=== PATIENT | female | born 1970 | race Caucasian/White ===

== ENCOUNTER 2019-02-03 00:05 | Observation (INO) | payer SELFPAY ==
[2019-02-03] MEDS ORDERED: Ketorolac Tromethamine 30 MG/ML VIAL ONE ×2 (00:42→11:13)
[2019-02-03] MEDS ORDERED: Ondansetron PF 4 MG/2 ML Vial ONE ×2 (00:42→09:41)
[2019-02-03 01:17] LABS: #Lymphocytes 1.6 thou/uL (1.20-3.40); #Neutrophils 13.6 thou/uL (1.40-6.50); %Basophils 0.3 % (0.0-1.0); %Eosinophils 0.1 % (0.0-10.0); %Neutrophils 83.7 % (42.0-75.0); Hemoglobin 14.2 g/dL (12.0-16.0); Mean Corpuscular HGB CONC 34.1 g/dL (32.0-36.0); Mean Corpuscular Hemoglobin 30.5 pg (27.0-31.0); Mean Corpuscular Volume 89.3 fL (78.0-98.0); Mean Platelet Volume 8.5 fL (7.4-10.4); Platelet Count 230 thou/uL (130-400); RBC Distribution Width 11.9 % (11.5-14.5); Red Blood Cell (RBC) Count 4.67 mill/uL (4.20-5.40); White Blood Cell (WBC) Count 16.2 thou/uL (4.8-10.8)
[2019-02-03 01:22] LABS: BHCG - Serum Negative (NEGATIVE); Pregs Control Background? CLEAR/WHITE (CLR/WHITE); Pregs Control Bar Appear? YES (CONTROL BAR)
[2019-02-03 01:38] LABS: ALT (SGPT) 236 U/L (8-55); AST (SGOT) 179 U/L (5-34); Albumin 4.1 g/dL (3.5-5.0); Alkaline Phosphatase 126 U/L (40-110); Anion Gap 13 mmol/L (10-20); BUN (Urea Nitrogen) 9 mg/dL (7.0-18.7); Bilirubin, Total 1.5 mg/dL (0.2-1.2); Calc. Creatinine Clearance 0 mL/min (70-130); Calcium 9.2 mg/dL (7.8-10.44); Carbon Dioxide 26 mmol/L (22-29); Chloride 99 mmol/L (98-107); Estimated GFR-MDRD 82; Globulin 3.6 g/dL (2.4-3.5); Glucose 85 mg/dL (70-105); Lipase 418 U/L (8-78); Potassium 3.3 mmol/L (3.5-5.1); Protein, Total 7.7 g/dL (6.0-8.3); Sodium 135 mmol/L (136-145)
[2019-02-03] MEDS ORDERED: Piperacillin/Tazobactam 4.5 GM VIAL ONE (02:15)
[2019-02-03] MEDS ORDERED: Morphine 4 MG/ML VIAL SLOW IVP PRN (03:48)
[2019-02-03] MEDS ORDERED: Ondansetron PF 4 MG/2 ML Vial IVP PRN (03:48)
[2019-02-03] MEDS ORDERED: Ondansetron ODT 4 MG TAB PO PRN (03:48)
[2019-02-03] MEDS ORDERED: hydrALAZINE 20 MG/ML VIAL SLOW IVP PRN (03:48)
[2019-02-03] MEDS ORDERED: Morphine 2 MG/ML SYRINGE SLOW IVP PRN (03:48)
[2019-02-03] MEDS ORDERED: Acetaminophen 1,000 MG in Premix Bag 1 BAG IVPB PRN ×2 (03:51→03:52)
[2019-02-03] MEDS ORDERED: Ketorolac Tromethamine 30 MG/ML VIAL IVP PRN ×2 (03:51→03:52)
[2019-02-03] MEDS ORDERED: Ketorolac Tromethamine 30 MG/ML VIAL IVP SCH (04:00)
[2019-02-03] MEDS ORDERED: Acetaminophen 1,000 MG in Premix Bag 1 BAG IVPB SCH ×2 (04:00)
--- NOTE | 2019-02-03 04:01 | HP ---
HISTORY OF PRESENT ILLNESS: A 48-year-old female with biliary symptoms for more than 12 years, presents with a severe episode. Ultrasound reveals multiple gallstones, normal bile duct caliber. White count 16, hemoglobin 14. Sodium 135, potassium 3.3, bilirubin 1.5, AST 179, ALT 236, and alkaline phosphatase 126. ALLERGIES: NONE. SOCIAL HISTORY: Tobacco, none. Alcohol, socially. MEDICATIONS: None. PAST SURGICAL HISTORY: Tonsillectomy. PAST MEDICAL HISTORY: Noncontributory. REVIEW OF SYSTEMS: Noncontributory. PHYSICAL EXAMINATION: VITAL SIGNS: Weight 113 kg, blood pressure 131/79, heart rate 114, respiratory rate 18, and temperature 99 degrees. HEENT: Sclerae are nonicteric. LUNGS: Clear to auscultation. NEUROLOGIC: Intact. No focal deficit. CARDIAC: Regular rate and rhythm without murmur or gallop. ABDOMEN: Obese, soft. Tenderness in right upper quadrant. Positive Bentley's. EXTREMITIES: Unremarkable. No lymphadenopathy in neck, groin, or axilla. No evident hernias. ASSESSMENT: Cholecystitis, cholelithiasis. PLAN: Laparoscopic video cholecystectomy, cholangiograms. Risks of infection, bleeding, visceral and biliary injury, open procedure, transfusions, etc., were discussed, questions answered. Job ID: [id number]
[2019-02-03] MEDS: NS 0.9% w/ 20 MEQ KCL 1,000 ML IV SCH ×2 (05:08→11:42)
[2019-02-03 05:23] VITALS: BMI 39.1
[2019-02-03] MEDS ORDERED: Lidocaine 1% PF 5 ML VIAL ONE (09:41)
[2019-02-03] MEDS ORDERED: PROPOFOL 200 MG/20 ML VIAL ONE (09:41)
[2019-02-03] MEDS ORDERED: Dexamethasone 20 MG/5 ML VIAL ONE (09:41)
[2019-02-03] MEDS ORDERED: Glycopyrrolate 0.2 MG/ML 5 ML SYRINGE ONE (09:41)
[2019-02-03] MEDS ORDERED: Rocuronium Bromide 10 MG/ML (10ML VIAL) ONE (09:41)
--- NOTE | 2019-02-03 09:43 | ULT ---
PRELIMINARY REPORT/[facility]/EMERGENCY AFTER HOURS PROCEDURE: PROCEDURE INFORMATION: Exam: US Abdomen Limited, Right Upper Quadrant Exam date and time: 02/03/2019 12:19 AM Clinical history: 48 years old, female; Other: Upper abd pain TECHNIQUE: Imaging protocol: Real-time ultrasound of the abdomen with image documentation. Examination was focus ed on the right upper quadrant. COMPARISON: No relevant prior studies available. FINDINGS: Liver: Normal. No masses. Gallbladder: Gallbladder is full of gallstones. No gallbladder wall thickening. Equivocal trace peric holecystic fluid. Sonographic Bentley's sign reported as positive. Common bile duct: Normal. No stones. No dilation. Pancreas: Visualized pancreas is unremarkable. Right kidney: Normal. No mass. No hydronephrosis. IMPRESSION: Gallbladder full of gallstones. Equivocal trace pericholecystic fluid and presence of positive sonogr aphic Bentley sign there is the possibility of acute cholecystitis; however, there is no gallbladder w all thickening. Thank you for allowing us to participate in the care of your patient. Dictated and Authenticated by: Geremias Green MD 02/03/2019 12:59 AM Central Time ([place] & [place]) FINAL REPORT RIGHT UPPER QUADRANT ULTRASOUND: HISTORY: Upper abdominal pain. COMPARISON: None. FINDINGS: This report is in agreement with the preliminary report by [facility]. Sonographic evidence of cholelithias is with positive Bentley's sign and a trace amount of pericholecystic fluid. The possibility of erika cystitis is raised. Correlate clinically. Consider HIDA scan. POS: [facility]
[2019-02-03] MEDS ORDERED: Fentanyl 100 MCG/2 ML VIAL ONE (10:53)
[2019-02-03] MEDS ORDERED: Bupivacaine HCl 0.5%/Epinephrine 1:200,000/PF 30 ml Vial ONE (11:13)
[2019-02-03] MEDS ORDERED: Iothalamate Meglumine 60% 50 ML VIAL FS ONE (11:42)
--- NOTE | 2019-02-03 12:26 | RAD ---
INTRAPROCEDURE FLUOROSCOPY INTRAOPERATIVE CHOLANGIOGRAM: HISTORY: Intraoperative cholangiogram; cholecystitis. FINDINGS: Single fluoroscopic view demonstrates cannulation of the cystic duct. Appropriate contrast opacificat ion of the common bile duct and intrahepatic biliary system. Contrast opacifies the duodenum. IMPRESSION: Intraoperative fluoroscopy as above. Transcribed Date/Time: 02/03/2019 12:36 PM
--- NOTE | 2019-02-03 13:00 | OP ---
DATE OF PROCEDURE: 02/03/2019 PREOPERATIVE DIAGNOSES: [id number] cholecystitis, cholelithiasis, elevated liver function test, and normal bile duct caliber. POSTOPERATIVE DIAGNOSES: [id number] cholecystitis, cholelithiasis, elevated liver function test, and normal bile duct caliber. PROCEDURES PERFORMED: Laparoscopic video cholecystectomy, negative intraoperative cholangiogram, fluoroscopy used. ANESTHESIA: General, local anesthesia of 0.5% Marcaine with epinephrine 30 mL. DESCRIPTION OF PROCEDURE: The patient was taken to the operating room, where under general anesthesia, abdomen was prepared with ChloraPrep and draped in routine fashion. Local anesthetic of 0.5% Marcaine with epinephrine was infiltrated in the skin and subcutaneous tissue at each port site. Infraumbilical incision was made. Pneumoperitoneum to 15 mmHg was obtained with a Veress needle. I replaced it with a 5 port, and laparoscope was inserted. Right subxiphoid incision was made, and an 11 port was placed. Right subcostal incision was made at midclavicular entrance line, and a 5 port was placed. Liver appeared to be normal. Gallbladder was distended, mildly inflamed. Fundus was grasped at the cephalad. Infundibulum was grasped and retracted laterally. Cystic artery and duct were dissected free. Critical view was obtained. Cystic artery was doubly clipped proximally. Cystic duct was singly clipped on the gallbladder side. Opening was made in the cystic duct, and cholangiocatheter was inserted. Cholangiogram was obtained using fluoroscopy revealing free flow of contrast into the duodenum without filling defects in the common hepatic, common bile, or left and right hepatic ducts. Bile duct tapered nicely. Cholangiocatheter was removed. Cystic duct was now doubly clipped and divided, and cystic artery was divided. The gallbladder was dissected free from the liver bed obtaining good hemostasis prior to division of the final attachments. All instruments were removed, and all skin incisions were approximated with interrupted subdermal 4-0 Monocryl, and [place] glue was applied. Job ID: [id number]
--- NOTE | 2019-02-03 13:51 | DIS ---
DATE OF ADMISSION: 02/03/2019 DATE OF DISCHARGE: 02/03/2019 DISCHARGE DIAGNOSES: Acute cholecystitis, cholelithiasis. PROCEDURES: Ultrasound of the gallbladder, laparoscopic video cholecystectomy, normal cholangiograms. HISTORY: A 48-year-old morbidly obese female with more than a 12-year history of biliary colic, presents with severe episode to the emergency room. Ultrasound revealed normal bile duct caliber, elevated liver function tests, and gallstones. She was admitted overnight for intravenous antibiotics, taken to the operating room for laparoscopic video cholecystectomy and cholangiograms, which were normal, and she was discharged to home on Tylenol, Motrin, Ultram for pain. DIET AND ACTIVITY: As tolerated. FOLLOWUP: Follow up in my office in 2 to 3 weeks. Job ID: [id number]
[2019-02-03] MEDS ORDERED: Acetaminophen 500 MG TAB PO PRN (13:58)
[2019-02-03] MEDS ORDERED: Ibuprofen 600 MG TAB PO PRN (13:58)
[2019-02-03] MEDS ORDERED: traMADol HCl 50 MG TAB PO PRN ×2 (13:58)
[2019-02-03 16:05] VITALS: BP 99/61; TEMP 98.6
[2019-02-03] MEDS ORDERED: Enoxaparin Sodium 40 MG/0.4 ML SYRINGE SC SCH (21:00)
[2019-02-03] MEDS ORDERED: FLU VACC QS2019-20(6MOS UP)/PF 60 MCG/0.5 ML SYRINGE IM ONE (21:00)
== END 2019-02-03 19:39 | disposition home or self-care (01) ==
LOC: ERS 00:05 → SURG B 02:01
PROVIDERS: ADMIT Specialist; ATTEND Specialist
PROC: 0FT44ZZ Resection of Gallbladder, Percutaneous Endoscopic Approach (ICD-10-PCS; principal; 2019-02-03)
PROC: BF101ZZ Fluoroscopy of Bile Ducts using Low Osmolar Contrast (ICD-10-PCS; 2019-02-03)
DX: K80.12 Calculus of gallbladder with acute and chronic cholecystitis without obstruction (principal); R79.89 Other specified abnormal findings of blood chemistry; E66.01 Morbid (severe) obesity due to excess calories; Z68.39 Body mass index [BMI] 39.0-39.9, adult
CPT/HCPCS: 47532; 76705; 80053; 83690; 84703; 85025; 88304; 96361; 96365; 96366; 96367; 96375; G0378; J0131; J0670; J1100; J1610; J1885; J1956; J2001; J2405; J2543; J2704; J3010; J3480